=== PATIENT | male | born 1950 | race Caucasian/White ===

== ENCOUNTER → 2019-04-26 | Day surgery (SDC) | payer OTHER, BC ==
--- NOTE | 2019-05-05 10:30 | PATH ---
Surgical Pathology Report Patient Name: MARYLIN GRIFFIN [facility]. Rec. #: [id number] /Age/Gender: 1950 (Age: 68) / M Account: [id number] Location: [facility] Taken: 04/26/2019 Received: 04/26/2019 Reported: 05/05/2019 Physicians: Ely Osorio M.D. Specimen(s) Received LEFT AXILLA 2.2 CM. Clinical History Nonpalpable lesion Ultrasound findings: Probably benign Final Diagnosis Immunohistochemistry Analysis performed and interpreted at [facility], [place], [place] (Specimen #: [id number]) shows the following: LYMPH NODE, LEFT AXILLARY, NEEDLE BIOPSY: Benign lymph node with focal sinus histiocytosis and polytypic plasma cell infiltrates. No evidence of malignancy. COMMENT: There is no significant cytologic and immunophenotypic abnormality. Although there is a focally diffuse pattern of small B cells, the provided flow cytometry report indicates the presence of abundant B cells with no clonal B cell population. The submitted AE1/AE3 stain shows focal background staining, but repeated AE1/AE3 is negative. See [employer] report for additional details (Specimen #: [id number]). LYMPHOPROLIFERATIVE FLOW PANEL performed and interpreted at [facility] laboratory, [place], [place] ([id number]) shows the following: INTERPRETATION: No detectable B or T-cell non-Hodgkin lymphoma, in a limited sample, see comment. Comment: Correlation with complete morphologic/immunohistochemical assessment of the sample is essential. SEE [facility] REPORT ([id number]) FOR DETAILS. Electronically Signed Tru Bond M.D. Gross Description Received in formalin labeled "left axilla," are 5 selby-yellow, cylindrical portions of fibroadipose tissue ranging from 0.5-1.0 cm in length and averaging 0.1 cm diameter. The specimens are submitted in toto in one cassette. There is additional tissue received in RPMI solution which is sent to [facility] for flow cytometry. Time to formalin fixation: Less than one minute Total formalin fixation time: Approximately 8 hours. 04/26/2019 saudi04/26/2019
== END | disposition home or self-care (01) ==
LOC: JRAD 08:19 → JRADUS-SUR 08:19
PROVIDERS: ATTEND Internal Medicine Hematology & Oncology
PROC: 07B63ZX Excision of Left Axillary Lymphatic, Percutaneous Approach, Diagnostic (ICD-10-PCS; principal; 2019-04-26)
PROC: BH41ZZZ Ultrasonography of Left Breast (ICD-10-PCS; 2019-04-26)
DX: R59.9 Enlarged lymph nodes, unspecified (principal); C16.9 Malignant neoplasm of stomach, unspecified
CPT/HCPCS: 19083; 38505; 76942; 87899; 88305-TC

== ENCOUNTER 2020-10-10 09:30 | Inpatient (IN) | payer OTHER, BC ==
[2020-10-10] MEDS ORDERED: CELECOXIB 200 MG CAPSULE PO ONE (10:08)
[2020-10-10] MEDS ORDERED: CEFAZOLIN 2 GM in DEXTROSE 5%-WATER - 50 ML IVPB ONE (10:08)
[2020-10-10] MEDS ORDERED: TRANEXAMIC ACID 1000 MG/10 ML VIAL IVPUSH ONE (10:08)
[2020-10-10 10:45] VITALS: BMI 25.0
[2020-10-10] MEDS ORDERED: BUPIVACAINE LIPOSOME/PF (EXPAREL) 266 MG/20 ML VIAL ONE (11:37)
[2020-10-10] MEDS ORDERED: SODIUM CHLORIDE 0.9% P/F 10 ML VIAL IJ ONE (11:37)
[2020-10-10] MEDS ORDERED: MIDAZOLAM HCL 2 MG/2 ML SINGLE DOSE VIAL ONE (11:37)
[2020-10-10] MEDS ORDERED: VANCOMYCIN 1,000 MG VIAL (RESTRICTED TO ID ONLY) ONE (12:03)
[2020-10-10] MEDS ORDERED: ceFAZolin SODIUM 1 GM VIAL ONE ×2 (12:03→13:01)
[2020-10-10] MEDS ORDERED: MAGNESIUM HYDROX 2400MG/30ML ORAL SUSPENSION 30 ML CUP PO PRN (12:42)
[2020-10-10] MEDS ORDERED: ONDANSETRON 4 MG/2 ML VIAL IVPUSH PRN (12:42)
[2020-10-10] MEDS ORDERED: MAG HYDROX/AL HYDROX/SIMETH 30 ML UNIT-DOSE CUP PO PRN (12:42)
[2020-10-10] MEDS ORDERED: LACTATED RINGERS SOLUTION 1,000 ML IV SCH (12:45)
[2020-10-10] MEDS ORDERED: TRANEXAMIC ACID 1000 MG/10 ML VIAL ONE (13:01)
[2020-10-10] MEDS ORDERED: oxyCODONE HCL 5 MG TABLET PO PRN ×2 (14:48)
[2020-10-10] MEDS ORDERED: ACETAMINOPHEN 325 MG TABLET (FP) ONE (15:01)
[2020-10-10] MEDS: ACETAMINOPHEN 325 MG TABLET (FP) PO SCH ×2 (15:05→21:16)
[2020-10-10] MEDS: SENNOSIDES/DOCUSATE COMBO (SENNA PLUS) TABLET (UD) PO SCH (21:15)
[2020-10-10] MEDS: CEFAZOLIN 2 GM/D5W 2 GM/50 ML ML IVPB SCH (21:15)
[2020-10-10] MEDS: oxyCODONE HCL 10 MG SUSTAINED ACTING TABLET PO SCH (21:16)
[2020-10-10] MEDS ORDERED: ATORVASTATIN CA 20 MG TABLET (FP) PO SCH (22:00)
[2020-10-11] MEDS: ACETAMINOPHEN 325 MG TABLET (FP) PO SCH ×2 (03:19→08:14)
[2020-10-11] MEDS: CEFAZOLIN 2 GM/D5W 2 GM/50 ML ML IVPB SCH (04:35)
[2020-10-11] MEDS ORDERED: ASPIRIN 325 MG TABLET PO SCH (08:00)
[2020-10-11 08:30] LABS: HEMATOCRIT 33.2 % (35.4-49); HEMOGLOBIN 11.2 GM/dl (11.7-16.9); MCH 29.3 pg (25.7-33.7); MCHC 33.7 g/dl (32.0-35.9); MEAN PLT VOLUME 9.5 fl (7.5-11.1); PLATELET COUNT 147 K/MM3 (134-434); RBC 3.82 M/mm3 (4.00-5.60); RDW 12.3 % (11.9-15.9); WHITE BLOOD COUNT 5.9 K/mm3 (4.0-10.8)
[2020-10-11] MEDS ORDERED: amLODIPine BESYLATE 5 MG TABLET (FP) PO SCH (10:00)
[2020-10-11] MEDS ORDERED: HYDROCHLOROTHIAZIDE 12.5 MG CAPSULE (FP) PO SCH (10:00)
[2020-10-11] MEDS ORDERED: MULTIVITAMINS (DAILY MVI) TABLET (FP) PO SCH (10:00)
[2020-10-11] MEDS ORDERED: RAMIPRIL 5 MG CAPSULE PO SCH (10:00)
[2020-10-11] MEDS ORDERED: FAMOTIDINE 20 MG TABLET PO SCH (10:00)
[2020-10-11] MEDS: SENNOSIDES/DOCUSATE COMBO (SENNA PLUS) TABLET (UD) PO SCH (11:10)
[2020-10-11] MEDS: oxyCODONE HCL 10 MG SUSTAINED ACTING TABLET PO SCH (11:11)
[2020-10-11 14:08] VITALS: BP 121/72; PULSE 103; TEMP 98.5
== END 2020-10-11 15:05 | disposition home health service (06) | DRG 470 ==
LOC: FM/S 09:51
PROVIDERS: ADMIT Orthopaedic Surgery; ATTEND Orthopaedic Surgery
PROC: 8E0Y0CZ Robotic Assisted Procedure of Lower Extremity, Open Approach (ICD-10-PCS; 2020-10-10)
PROC: 0SRC0JA Replacement of Right Knee Joint with Synthetic Substitute, Uncemented, Open Approach (ICD-10-PCS; principal; 2020-10-10 13:08)
DX: M17.11 Unilateral primary osteoarthritis, right knee (principal)
CPT/HCPCS: 36415; 73560-TC-RT-FY; 85027; 94760; 97010-GP; 97116-GP; 97162-GP

== ENCOUNTER 2023-11-23 09:30 | Emergency (ER) | payer OTHER, BC ==
[2023-11-23 09:38] VITALS: BP 149/95; PULSE 56; RESP 18; TEMP 97.6; BMI 27.4
[2023-11-23] MEDS ORDERED: LIDOCAINE 5% TOPICAL PATCH ONE (09:50)
[2023-11-23] MEDS: LIDOCAINE 5% TOPICAL PATCH TP ONE (09:57)
[2023-11-23 10:13] LABS: EPITHELIAL CELLS 0-5 /hpf
[2023-11-23] MEDS ORDERED: LIDOCAINE PATCH REMOVAL MC SCH (22:00)
== END 2023-11-23 10:35 | disposition home or self-care (01) ==
LOC: FER 09:30
DX: M54.50 Low back pain, unspecified (principal); S39.012A Strain of muscle, fascia and tendon of lower back, initial encounter; X58.XXXA Exposure to other specified factors, initial encounter
CPT/HCPCS: 81003; 81015; 99283-25